=== PATIENT | male | born 1970 | race Caucasian/White ===

== ENCOUNTER 2017-09-18 09:40 | Day surgery (SDC) | payer MEDICARE, OTHER ==
[~2017-09-18] VITALS: Ht 188 cm; Wt 93.9 kg
[~2017-09-18 09:40] MED LIST: ALBU90OI INH; ALBU90OI61; BACL10 PO; CEPH500 PO; CODACE30 PO; CYCL10 PO; DEXL60CA3 PO; GABA100 PO; LORA1 PO; MARIJUANA; OMEP20ER PO; PRED20 PO; PROACE100; PROM25 PO; RANI150 PO; SUCR1 PO
== END 2017-09-18 12:33 | disposition home or self-care (01) ==
LOC: ORSCSDS 09:40
PROVIDERS: Internal Medicine Gastroenterology
PROC: 0DB48ZX Excision of Esophagogastric Junction, Via Natural or Artificial Opening Endoscopic, Diagnostic (ICD-10-PCS; principal; 2017-09-18 11:00)
PROC: 0D758ZZ Dilation of Esophagus, Via Natural or Artificial Opening Endoscopic (ICD-10-PCS; principal; 2017-09-18 11:00)
DX: R13.10 Dysphagia, unspecified (principal); K22.2 Esophageal obstruction; K22.70 Barrett's esophagus without dysplasia; E78.5 Hyperlipidemia, unspecified; Z87.891 Personal history of nicotine dependence; Z79.899 Other long term (current) drug therapy
CPT/HCPCS: 88305; J7120

== ENCOUNTER → 2020-04-19 | Outpatient (CLI) | payer MEDICARE, OTHER | END | disposition home or self-care (01) | LOC: LAB SHORT 09:19 → LAB EV 09:19 | DX: Z20.828 Contact with and (suspected) exposure to other viral communicable diseases (principal) | CPT/HCPCS: U0003 ==

== ENCOUNTER 2020-06-01 10:47 | Day surgery (SDC) | payer MEDICARE, OTHER ==
[~2020-06-01] VITALS: Ht 188 cm; Wt 104.2 kg
--- NOTE | 2020-06-01 12:15 | NUR ---
06/01/[address] NOTIFED PT EXHIBITED BILAT WHEEZES ALL THROUGHOUT TO AUSCULATION. V/O TO GIVE DUONEB TREATMENT VIA NEBULIZER AT THIS TIME.
== END 2020-06-01 13:30 | disposition home or self-care (01) ==
LOC: ORSCSDS 10:47
PROVIDERS: Internal Medicine Gastroenterology
PROC: 0D758ZZ Dilation of Esophagus, Via Natural or Artificial Opening Endoscopic (ICD-10-PCS; principal; 2020-06-01 12:00)
PROC: 0DB58ZX Excision of Esophagus, Via Natural or Artificial Opening Endoscopic, Diagnostic (ICD-10-PCS; principal; 2020-06-01 12:00)
DX: K22.70 Barrett's esophagus without dysplasia (principal); K22.2 Esophageal obstruction; R10.13 Epigastric pain; R13.10 Dysphagia, unspecified; K44.9 Diaphragmatic hernia without obstruction or gangrene; K20.90 Esophagitis, unspecified without bleeding; Z87.891 Personal history of nicotine dependence; E78.5 Hyperlipidemia, unspecified; K21.9 Gastro-esophageal reflux disease without esophagitis; F41.9 Anxiety disorder, unspecified; Z79.899 Other long term (current) drug therapy
CPT/HCPCS: 88305; J2250; J2704; J7120

== ENCOUNTER 2023-07-11 11:34 | Day surgery (SDC) | payer MEDICARE ==
[~2023-07-11] VITALS: Ht 188 cm; Wt 103.8 kg
[~2023-07-11 11:34] MED LIST changes: +FAMO20 PO
[2023-07-11] MEDS ORDERED: ALBU90OI INH (11:54)
[2023-07-11] MEDS ORDERED: ALBU90OI6 INH (11:54)
[2023-07-11 13:08] VITALS: BP 112/75
== END 2023-07-11 13:41 | disposition home or self-care (01) ==
LOC: ORSCSDS 11:34
PROVIDERS: Internal Medicine Gastroenterology
PROC: 0DJD8ZZ Inspection of Lower Intestinal Tract, Via Natural or Artificial Opening Endoscopic (ICD-10-PCS; principal; 2023-07-11 12:45)
PROC: 0D758ZZ Dilation of Esophagus, Via Natural or Artificial Opening Endoscopic (ICD-10-PCS; 2023-07-11 12:45)
PROC: 0DB58ZX Excision of Esophagus, Via Natural or Artificial Opening Endoscopic, Diagnostic (ICD-10-PCS; 2023-07-11 12:45)
DX: R13.10 Dysphagia, unspecified (principal); Z12.11 Encounter for screening for malignant neoplasm of colon; K22.70 Barrett's esophagus without dysplasia; K22.2 Esophageal obstruction; K57.30 Diverticulosis of large intestine without perforation or abscess without bleeding; K21.9 Gastro-esophageal reflux disease without esophagitis; Z79.899 Other long term (current) drug therapy
CPT/HCPCS: 43248; 43239; G0121; 88305; J2704; J7120